=== PATIENT | male | born 2000 | race African-American/Black ===

== ENCOUNTER 2023-05-28 10:09 | Emergency (ER) | payer MEDICAID, OTHER ==
[~2023-05-28] VITALS: Ht 175.3 cm; Wt 68.0 kg
[2023-05-28 10:16] VITALS: O2SAT 100
[2023-05-28] MEDS ORDERED: KETOROLAC 60MG/2ML VIAL IM STA (10:45)
[2023-05-28] MEDS ORDERED: IBUP-2029 PO (11:43)
[2023-05-28 12:17] VITALS: BP 139/64; PULSE 60; RESP 18; TEMP 98.4
== END 2023-05-28 12:18 | disposition home or self-care (01) ==
LOC: ER 10:28
DX: S80.02XA Contusion of left knee, initial encounter (principal); V89.2XXA Person injured in unspecified motor-vehicle accident, traffic, initial encounter; Y93.89 Activity, other specified; Y92.89 Other specified places as the place of occurrence of the external cause; Y99.8 Other external cause status
CPT/HCPCS: 73562; 96372; 99283; J1885; Z7610 ×2

== ENCOUNTER 2023-07-22 12:27 | Emergency (ER) | payer MEDICAID, OTHER ==
[~2023-07-22] VITALS: Ht 180.3 cm; Wt 72.0 kg
[~2023-07-22 12:27] MED LIST: IBUP-2029 PO
[2023-07-22 12:51] VITALS: BP 113/89; RESP 16; TEMP 98.9; O2SAT 100
[2023-07-22 12:57] VITALS: PULSE 90
[2023-07-22] MEDS ORDERED: DEXAMETHASONE 10 MG/ML VIAL PO ONE (13:15)
[2023-07-22] MEDS ORDERED: DEXAMETHASONE 10 MG/ML VIAL PO NR (13:45)
== END 2023-07-22 14:02 | disposition home or self-care (01) ==
LOC: ER 12:27
DX: B34.9 Viral infection, unspecified (principal)
CPT/HCPCS: 99283; J1100

== ENCOUNTER 2024-05-30 14:43 | Emergency (ER) | payer MEDICAID ==
[~2024-05-30] VITALS: Ht 180.3 cm; Wt 66.0 kg
[2024-05-30 14:47] VITALS: O2SAT 100
[2024-05-30 15:00] VITALS: BP 137/72; PULSE 69; RESP 18; TEMP 98; O2SAT 100
== END 2024-05-30 18:12 | disposition home or self-care (01) ==
LOC: ER 14:54
DX: K46.9 Unspecified abdominal hernia without obstruction or gangrene (principal)
CPT/HCPCS: 99281

== ENCOUNTER 2024-11-15 14:22 | Emergency (ER) | payer MEDICAID ==
[~2024-11-15] VITALS: Ht 180.3 cm; Wt 79.3 kg
[2024-11-15 14:28] VITALS: O2SAT 100
[2024-11-15 15:21] LABS: CARBON DIOXIDE 31 mEq/L (21-32); CHLORIDE 110 mEq/L (98-107); POTASSIUM 4.1 mEq/L (3.5-5.1); SODIUM 142 mEq/L (136-145)
[2024-11-15 15:22] LABS: CALCIUM 9.3 mg/dL (8.7-10.4)
[2024-11-15 15:24] LABS: BASOPHILS % 0.6 % (0.0-2.0); EOSINOPHILS % 3.7 % (0.0-5.0); HEMATOCRIT. 38.3 % (42.0-52.0); HEMOGLOBIN. 12.4 g/dL (14.0-18.0); LYMPHOCYTES % 29.1 % (20.0-50.0); MEAN CORPUSCULAR HEMOGLOBIN 29.1 pg (28.0-32.0); MEAN CORPUSCULAR HGB CONC 32.4 g/dL (31.0-37.0); MEAN CORPUSCULAR VOLUME 89.7 fL (80.0-94.0); MEAN PLATELET VOLUME 10.4 fl (7.4-10.4); NEUTROPHILS % 59.6 % (40.0-76.0); PLATELET 198 x1000/uL (130-400); RED BLOOD CELL COUNT 4.27 mill/uL (4.7-6.1); RED CELL DISTRIBUTION WIDTH 13.7 % (11.6-14.6); WHITE BLOOD COUNT 5.9 x1000/uL (4.5-11.0)
[2024-11-15 15:27] LABS: GLUCOSE 99 mg/dL (70-105); UREA NITROGEN BLOOD 14 mg/dL (9-23)
[2024-11-15 15:29] LABS: ALANINE AMINOTRANSFERASE 15 IU/L (10-49); ALBUMIN 4.6 g/dL (3.2-4.8); ASPARTATE AMINOTRANSFERASE 21 IU/L (<34); BILIRUBIN DIRECT 0.3 mg/dL (<=3.0); BILIRUBIN TOTAL 0.8 mg/dL (0.1-1.0); PROTEIN TOTAL 7.3 g/dL (6.0-8.3)
[2024-11-15 17:41] VITALS: BP 120/77; PULSE 55; RESP 16; TEMP 37; O2SAT 100
== END 2024-11-15 17:41 | disposition home or self-care (01) ==
LOC: ER 14:22
DX: K46.9 Unspecified abdominal hernia without obstruction or gangrene (principal)
CPT/HCPCS: 36415; 80048; 80076; 85025; 86850; 86900; 99283

== ENCOUNTER 2024-11-27 14:03 | Emergency (ER) | payer MEDICAID ==
[~2024-11-27] VITALS: Ht 180.3 cm; Wt 79.0 kg
[2024-11-27 14:09] VITALS: TEMP 36.6; O2SAT 98
[2024-11-27 14:26] LABS: CLARITY URINE CLEAR (CLEAR); COLOR URINE YELLOW (YELLOW); GLUCOSE URINE NEGATIVE (NEGATIVE); KETONES URINE NEGATIVE (NEGATIVE); LEUKOCYTE ESTERASE URINE NEGATIVE (NEGATIVE); NITRITE URINE NEGATIVE (NEGATIVE); OCCULT BLOOD URINE NEGATIVE (NEGATIVE); PH URINE 5.5 (4.5-8.0); PROTEIN URINE NEGATIVE (NEGATIVE); SPECIFIC GRAVITY URINE 1.025 (1.005-1.030); UROBILINOGEN URINE 0.2 E.U./dL (0.2-1.0)
[2024-11-27 14:52] VITALS: BP 115/61; PULSE 60; RESP 16; O2SAT 100
== END 2024-11-27 14:53 | disposition home or self-care (01) ==
LOC: ER 14:03
DX: K43.9 Ventral hernia without obstruction or gangrene (principal)
CPT/HCPCS: 81003; 99283